=== PATIENT | female | born 1985 | race Caucasian/White ===

== ENCOUNTER 2017-01-10 22:13 | Emergency (ER) | payer SELFPAY ==
[2017-01-10] MEDS ORDERED: POVIDONE IODINE 10 % 15 ML UD TOP ONE (22:44)
[2017-01-10] MEDS ORDERED: LIDOCAINE 1% W/ EPINEPHRINE 20 ML VIAL INJ ONE (22:44)
--- NOTE | 2017-01-10 22:54 | ED.PDOC ---
History of Present Illness - General Chief Complaint: Skin/Abrasion/Tear Stated Complaint: boil to [place] area Time Seen by Provider: 01/10/17 22:17 Source: patient Exam Limitations: no limitations - History of Present Illness Initial Comments: Patient complains of an abcess on the left labia majora for six months. It intermittently is painful then the pain will resolve. It started to hurt again yesterday and she decided to come in tonight. She is sexually active and says that her partner has no symptoms. No previous episodes. No fevers. No other complaints. Timing/Duration: other - 6 months Severity: mild Improving Factors: nothing Worsening Factors: nothing Associated Symptoms: denies symptoms Home Medications: Ambulatory Orders Sulfamethoxazole-Trimethoprim [Bactrim Ds 800-160 mg] 1 tab PO BID #20 tab 01/10 Review of Systems - Review of Systems Constitutional: States: no symptoms reported EENTM: States: no symptoms reported Respiratory: States: no symptoms reported Cardiology: States: no symptoms reported Gastrointestinal/Abdominal: States: no symptoms reported Genitourinary: States: see HPI Musculoskeletal: States: no symptoms reported Skin: States: see HPI Neurological: States: no symptoms reported Endocrine: States: no symptoms reported Hematologic/Lymphatic: States: no symptoms reported Past Medical History (General) - Patient Medical History Hx Seizures: No Hx Stroke: No Hx Dementia: No Hx Asthma: No Hx of COPD: No Hx Cardiac Disorders: No Hx Congestive Heart Failure: No Hx Pacemaker: No Hx Hypertension: No Hx Thyroid Disease: No Hx Diabetes: No Hx Gastroesophageal Reflux: No Hx Renal Disease: No Hx of HIV: No Hx MRSA: No Surgical History: appendectomy, other - Vaccination History Hx Tetanus, Diphtheria Vaccination: No Hx Influenza Vaccination: No Hx Pneumococcal Vaccination: No Immunizations Up to Date: No - Social History Hx Tobacco Use: Yes Hx Alcohol Use: Yes - social Family Medical History - Family History Father Living Status: Still Living Hx Family Hypertension: Yes Hx Family;Other: thyroid Physical Exam - Physical Exam General Appearance: Alert Respiratory: lungs clear Cardiovascular/Chest: regular rate, rhythm Gastrointestinal/Abdominal: normal bowel sounds, non tender, soft Skin Exam: other - 3 cm erythmatic tender raised lesion on left labia majora. No exudates. Progress - Progress Progress: 01/10/17 23:30 Area was prepped and draped in a sterile fashion. 3 cc of 2% lidocaine with epinephrine was injected around the lesion and good local anesthesia was obtained. 0.5 cm incision made with a #11 blade and purulence collected and sent for culture and sensitivity. Abscess was drained with tactile pressure and irrigated with 30 cc of sterile normal saline. Patient was having moderate pain at that point so she requested a pain medication. She was given toradol 30 mg IM x one. Departure - Departure Clinical Impression: Abscess Disposition: Discharge to Home or Self Care Condition: Good Departure Forms: ED Discharge - Pt. Copy, Patient Portal Self Enrollment Diet: resume usual diet Activity: increase activity as tolerated Prescriptions: Sulfamethoxazole-Trimethoprim [Bactrim Ds 800-160 mg] 1 tab PO BID #20 tab Home Medications: Ambulatory Orders Sulfamethoxazole-Trimethoprim [Bactrim Ds 800-160 mg] 1 tab PO BID #20 tab 01/10 Additional Instructions: See your primary care doctor in 5-7 days to check for wound healing. Return to the clinic if abscess has not healed in 10-14 days. Ibuprofen for pain control.
[2017-01-10] MEDS ORDERED: SULFA/TRIMETH 800/160 (DS) TAB 1 EA TAB PO ONE (23:29)
[2017-01-10] MEDS ORDERED: KETOROLAC TROMETHAMINE INJ 30 MG/ML VIAL IM ONE (23:29)
[2017-01-11 00:06] VITALS: BP 104/58; TEMP 97.9; O2SAT 98
== END 2017-01-10 23:49 | disposition home or self-care (01) ==
LOC: ER 22:13
DX: N76.4 Abscess of vulva (principal); Z87.891 Personal history of nicotine dependence; Z88.2 Allergy status to sulfonamides
CPT/HCPCS: 87070; J1885